=== PATIENT | male | born 1995 | race African-American/Black ===

== ENCOUNTER 2018-01-11 19:24 | Emergency (ER) | payer MEDICARE ==
[~2018-01-11] VITALS: Ht 182.9 cm; Wt 72.7 kg
[2018-01-11 19:48] VITALS: Ht 182.9 cm; Wt 72.7 kg
[2018-01-11] MEDS ORDERED: VIBRAMYCIN 100100 MG PO (21:33)
[2018-01-11] MEDS ORDERED: HYDROCODON-ACET15 ML PO (22:52)
[2018-01-11] MEDS ORDERED: BACTROBAN NASAL1 GM NASAL (22:53)
[2018-01-11 23:18] VITALS: BP 150/81
== END 2018-01-11 23:18 | disposition home or self-care (01) ==
LOC: D.ER 19:24
DX: L02.415 Cutaneous abscess of right lower limb (principal); L03.115 Cellulitis of right lower limb